=== PATIENT | male | born 1990 | race Caucasian/White ===

== ENCOUNTER 2017-10-21 00:15 | Observation (INO) | payer SELFPAY ==
[~2017-10-21] VITALS: Ht 177.8 cm; Wt 86.2 kg
[2017-10-21] MEDS ORDERED: LITH300C PO (00:53)
[2017-10-21] MEDS ORDERED: METPHE5 PO (00:53)
[2017-10-21] MEDS ORDERED: QUET300 PO (00:53)
[2017-10-21 01:49] LABS: BASOPHILS ABSOLUTE AUTO 0.03 K/mm3 (0.00-0.23); BASOPHILS PERCENT AUTO 0 % (0-2); EOSINOPHILS PERCENT AUTO 0 % (0-6); Hematocrit 43.3 % (37.0-53.0); Hemoglobin 14.3 g/dL (13.5-17.5); IMMATURE GRAN ABSOLUTE AUTO 0.01 K/mm3 (0.00-0.10); IMMATURE GRAN PERCENT AUTO 0 % (0-1); LYMPHOCYTES ABSOLUTE AUTO 1.43 K/mm3 (0.84-5.20); LYMPHOCYTES PERCENT AUTO 18 % (21-46); MONOCYTES ABSOLUTE AUTO 0.63 K/mm3 (0.16-1.47); MONOCYTES PERCENT AUTO 8 % (4-13); Mean Corpuscular Volume 85 fL (80-100); Mean Platelet Volume 9.3 fL (9.1-12.4); NEUTROPHILS ABSOLUTE AUTO 5.72 K/mm3 (1.96-9.15); NEUTROPHILS PERCENT AUTO 73 % (41-73); Platelet Count 285 K/mm3 (150-400); RDW Coefficient Variation 11.6 % (11.7-14.2); RDW Standard Deviation 35.8 fL (35.1-46.3); Red Blood Cell Count 5.11 M/mm3 (4.30-5.90); White Blood Cell Count 7.82 K/mm3 (4.00-11.30)
[2017-10-21 02:12] LABS: Alanine Aminotransfer (ALT/SGP 20 U/L (12-78); Albumin, Blood 4.3 g/dL (3.4-5.0); Alk Phos 129 U/L (50-136); Anion Gap 10 mmol/L (6-16); Aspartate Aminotrans (AST/SGOT 15 U/L (12-37); Bilirubin, Total 0.4 mg/dL (0.1-1.0); Blood Urea Nitrogen 7 mg/dL (8-24); Bun/Creatinine Ratio 10.4 (12.0-20.0); CO2, Blood 24 mmol/L (21-32); Calcium, Blood 8.9 mg/dL (8.5-10.1); Chloride, Blood 104 mmol/L (98-108); Creatinine, Blood 0.67 mg/dL (0.60-1.20); Globulin, Blood 4.4 g/dL (2.2-4.0); Glomerular Filtration Rate >60 (60-); Glucose, Blood 95 mg/dL (70-99); Potassium, Blood 3.8 mmol/L (3.5-5.5); Salicylate <1.7 mg/dL (2.8-20.0); Sodium, Blood 138 mmol/L (136-145); Total Protein, Blood 8.7 g/dL (6.4-8.2)
[2017-10-21 02:15] LABS: Thyroid Stimulating Hormone 0.802 uIU/mL (0.360-4.800)
[2017-10-21 02:16] LABS: Acetaminophen, Random <2.0 ug/mL (10.0-30.0); Ethanol (Alcohol), Blood, Med <3 mg/dL
== END 2017-10-21 02:25 | disposition home or self-care (01) ==
LOC: ER 00:15 → EOR 00:16
PROVIDERS: Emergency Medicine
DX: R45.851 Suicidal ideations (principal); F20.0 Paranoid schizophrenia; F43.22 Adjustment disorder with anxiety; F43.10 Post-traumatic stress disorder, unspecified
CPT/HCPCS: 80053; 84443; 85025; 99285; G0378; G0480; Q3014